=== PATIENT | female | born 1940 | race Caucasian/White ===

== ENCOUNTER 2020-05-31 08:50 | Day surgery (SDC) | payer MEDICARE, BC ==
[2020-05-31] MEDS ORDERED: Cataract Ophth Solution EYERT ONE (09:00)
[2020-05-31] MEDS ORDERED: Ondansetron 4 MG/2 ML SDV IVPUSH PRN (09:00)
[2020-05-31] MEDS ORDERED: Moxifloxacin 0.5% Ophth Soln 3 ML Bottle EYERT ONE (09:00)
[2020-05-31] MEDS ORDERED: Povidone-Iodine 5% Sterile Ophth Soln 30 ML Bottle EYERT ONE ×2 (09:00→11:02)
[2020-05-31] MEDS ORDERED: Acetaminophen 325 MG Tab PO PRN (09:00)
[2020-05-31] MEDS ORDERED: Sodium Chloride 0.9% 10 ML Syringe FLUSH PRN (09:00)
[2020-05-31] MEDS ORDERED: Tropicamide 1% Ophth Soln 15 ML Bottle EYERT ONE (09:00)
[2020-05-31] MEDS ORDERED: Timolol Maleate 0.5% Ophth Soln 5 ML Bottle EYERT ONE (09:00)
[2020-05-31] MEDS ORDERED: Phenylephrine 10% Ophth Soln 5 ML Bot EYERT PRN (09:00)
[2020-05-31] MEDS ORDERED: Proparacaine 0.5% Ophth Soln 15 ML Bottle EYERT ONE (09:00)
[2020-05-31] MEDS ORDERED: Tetracaine HCl/PF 0.5% 4 ML Bottle EYERT ONE (11:02)
[2020-05-31] MEDS ORDERED: Lidocaine 1% 30 ML SDV ONE (11:02)
[2020-05-31] MEDS ORDERED: Apraclonidine 0.5% Ophth Soln 5 ML Bot EYERT ONE (11:02)
[2020-05-31] MEDS ORDERED: Diclofenac Sodium 0.1% Ophth Soln 5 ML Bottle EYERT ONE (11:02)
[2020-05-31] MEDS ORDERED: Vancomycin 500 MG SDV EYERT ONE (11:03)
[2020-05-31] MEDS ORDERED: Chondroitin Sulfate/Hyaluronate Sodium Ophth Inj 0.75 ML Syringe EYERT ONE (11:03)
[2020-05-31] MEDS ORDERED: Balanced Salt Solution Ophth Irrig 500 ML Bottle IOCULAR ONE (11:03)
[2020-05-31] MEDS ORDERED: Dexamethasone/Tobramycin 0.1-0.3% Ophth Oint 3.5 GM Tube EYERT ONE (11:03)
[2020-05-31] MEDS ORDERED: Dexamethasone 4 MG/ML SDV IOCULAR ONE (11:06)
[2020-05-31 14:32] VITALS: BP 139/62; PULSE 52
--- NOTE | 2020-06-01 07:50 | OR ---
DATE: 05/31/2020 PREOPERATIVE DIAGNOSIS: Visually significant mixed cataract, right eye. POSTOPERATIVE DIAGNOSIS: Visually significant mixed cataract, right eye. PROCEDURE: Extracapsular cataract extraction with intraocular lens implant, right eye. ANESTHESIA: Topical/local MAC. COMPLICATIONS: None. INDICATION: Ms. Richards was seen in the clinic. She is unhappy with her vision noticing a slow progressive change. She has difficulty with both distance and near vision. She has difficulty seeing street signs. Examination revealed mixed cataract. I explained options, offered cataract surgery, and I explained risks including, but not limited to infection, retinal detachment, loss of vision, need for additional surgery, and risks associated with anesthesia. We discussed implant options. She has requested a monofocal implant. She understands that she will likely require glasses for some activities following surgery. OPERATIVE DESCRIPTION: After informed consent was obtained and the risks, benefits, and alternatives were explained, the patient was brought to the operative suite and topical anesthesia was administered. The patient was then prepped and draped in the sterile fashion and attention was placed on the right eye. A sterile lid speculum was placed into the right eye to allow operative exposure. A full-thickness paracentesis was made in the temporal portion of the operative eye. Preservative-free lidocaine 0.1 mL was injected into the anterior chamber followed by viscoelastic. A full-thickness corneal incision was then made into the anterior chamber. A bent needle cystotome was used to create a small rosalee in the anterior capsule. The capsulorrhexis forceps was then used to create a 360-degree curvilinear capsulorrhexis. The nucleus was then removed using a phacoemulsification handpiece and the remaining cortical material was then removed with irrigation and aspiration handpiece. Following removal of the cortical material, the capsular bag was then inspected and noted to be free of any holes or tears. Viscoelastic was then injected into the capsular bag and the intraocular lens was inserted into the capsular bag. The viscoelastic material was then removed from both the anterior and posterior chambers and from behind the IOL. The lens and capsular bag were then reinspected. The IOL was well centered and the capsular bag intact. The wound and paracentesis sites were inspected and hydrated with balanced saline solution. Both were found to be self- sealing. The intraocular pressure was assessed digitally and found to be within normal range. A good red reflex was noted at the completion of the procedure. No complications occurred during the operation. At the completion of the procedure, Maxitrol, Voltaren, and Iopidine drops were placed into the operative eye. A sterile eye shield was placed over the operative eye and the patient was transported to the postoperative recovery area having tolerated the procedure well. Postoperative instructions were given along with a postoperative appointment. The patient was advised to call with any questions or concerns. [facility] /[id number]
== END 2020-05-31 12:18 | disposition home or self-care (01) ==
LOC: DL.SDS 08:50
PROVIDERS: ATTEND Ophthalmology
DX: E11.36 Type 2 diabetes mellitus with diabetic cataract (principal); H25.811 Combined forms of age-related cataract, right eye; E03.9 Hypothyroidism, unspecified; F41.9 Anxiety disorder, unspecified; E78.5 Hyperlipidemia, unspecified; I25.10 Atherosclerotic heart disease of native coronary artery without angina pectoris; K21.9 Gastro-esophageal reflux disease without esophagitis; G47.30 Sleep apnea, unspecified; E55.9 Vitamin D deficiency, unspecified; Z88.2 Allergy status to sulfonamides; Z79.4 Long term (current) use of insulin; Z79.899 Other long term (current) drug therapy; Z98.890 Other specified postprocedural states; Z90.49 Acquired absence of other specified parts of digestive tract; Z79.82 Long term (current) use of aspirin
CPT/HCPCS: 00142; A9270-GY; J1100; J2001; J3370; V2632

== ENCOUNTER 2020-06-07 08:16 | Day surgery (SDC) | payer MEDICARE, BC ==
[2020-06-07] MEDS ORDERED: Sodium Chloride 0.9% 10 ML Syringe IV ONE (08:17)
[2020-06-07] MEDS ORDERED: Dexamethasone 4 MG/ML SDV IV ONE (08:17)
[2020-06-07] MEDS ORDERED: Midazolam 1 MG/ML 2 ML SDV IV ONE (08:17)
[2020-06-07] MEDS ORDERED: Ondansetron 4 MG/2 ML SDV IVPUSH PRN (08:30)
[2020-06-07] MEDS ORDERED: Cataract Ophth Solution EYELF ONE (08:30)
[2020-06-07] MEDS ORDERED: Timolol Maleate 0.5% Ophth Soln 5 ML Bottle EYELF ONE (08:30)
[2020-06-07] MEDS ORDERED: Phenylephrine 10% Ophth Soln 5 ML Bot EYELF ONE (08:30)
[2020-06-07] MEDS ORDERED: Moxifloxacin 0.5% Ophth Soln 3 ML Bottle EYELF ONE (08:30)
[2020-06-07] MEDS ORDERED: Proparacaine 0.5% Ophth Soln 15 ML Bottle EYELF ONE (08:30)
[2020-06-07] MEDS ORDERED: Povidone-Iodine 5% Sterile Ophth Soln 30 ML Bottle EYELF ONE ×2 (08:30→09:24)
[2020-06-07] MEDS ORDERED: Tropicamide 1% Ophth Soln 15 ML Bottle EYELF ONE (08:30)
[2020-06-07] MEDS ORDERED: Sodium Chloride 0.9% 10 ML Syringe FLUSH PRN (08:30)
[2020-06-07] MEDS ORDERED: Phenylephrine 10% Ophth Soln 5 ML Bot EYELF PRN (08:30)
[2020-06-07] MEDS ORDERED: Acetaminophen 325 MG Tab PO PRN (08:30)
[2020-06-07] MEDS ORDERED: Tetracaine HCl/PF 0.5% 4 ML Bottle EYELF ONE (09:23)
[2020-06-07] MEDS ORDERED: Apraclonidine 0.5% Ophth Soln 5 ML Bot EYELF ONE (09:24)
[2020-06-07] MEDS ORDERED: Lidocaine 1% 30 ML SDV ONE (09:24)
[2020-06-07] MEDS ORDERED: Balanced Salt Solution Ophth Irrig 500 ML Bottle IOCULAR ONE (09:25)
[2020-06-07] MEDS ORDERED: Dexamethasone/Tobramycin 0.1-0.3% Ophth Oint 3.5 GM Tube EYELF ONE (09:25)
[2020-06-07] MEDS ORDERED: Diclofenac Sodium 0.1% Ophth Soln 5 ML Bottle EYELF ONE (09:25)
[2020-06-07] MEDS ORDERED: Vancomycin 500 MG SDV EYELF ONE (09:26)
[2020-06-07] MEDS ORDERED: Chondroitin Sulfate/Hyaluronate Sodium Ophth Inj 0.75 ML Syringe EYELF ONE (09:26)
[2020-06-07] MEDS ORDERED: Dexamethasone 4 MG/ML SDV ONE (09:29)
[2020-06-07 10:24] VITALS: BP 133/57; PULSE 50
--- NOTE | 2020-06-12 07:02 | OR ---
DATE: 06/07/2020 PREOPERATIVE DIAGNOSIS: Visually significant mixed cataract, left eye. POSTOPERATIVE DIAGNOSIS: Visually significant mixed cataract, left eye. PROCEDURE: Extracapsular cataract extraction with intraocular lens implant, left eye. ANESTHESIA: Topical/local MAC. COMPLICATIONS: None. INDICATION: Ms. Richards was seen and evaluated in the clinic. Her examination revealed visually significant mixed cataract. She is unhappy with her vision noticing a progressive change, difficulty with both near and distance. I explained options, offered cataract surgery, and I explained risks, including, but not limited to, infection, retinal detachment, loss of vision, need for additional surgery, and risks associated with anesthesia. We discussed implant options. She has requested a monofocal implant. She understands that she will likely require glasses for best vision following surgery. OPERATIVE DESCRIPTION: After informed consent was obtained and the risks, benefits, and alternatives were explained, the patient was brought to the operative suite and topical anesthesia was administered. The patient was then prepped and draped in the sterile fashion and attention was placed on the left eye. A sterile lid speculum was placed into the left eye to allow operative exposure. A full-thickness paracentesis was made in the temporal portion of the operative eye. Preservative-free lidocaine 0.1 mL was injected into the anterior chamber followed by viscoelastic. A full-thickness corneal incision was then made into the anterior chamber. A bent needle cystotome was used to create a small rosalee in the anterior capsule. The capsulorrhexis forceps was then used to create a 360-degree curvilinear capsulorrhexis. The nucleus was then removed using a phacoemulsification handpiece and the remaining cortical material was then removed with irrigation and aspiration handpiece. Following removal of the cortical material, the capsular bag was then inspected and noted to be free of any holes or tears. Viscoelastic was then injected into the capsular bag and the intraocular lens was inserted into the capsular bag. The viscoelastic material was then removed from both the anterior and posterior chambers and from behind the IOL. The lens and capsular bag were then reinspected. The IOL was well centered and the capsular bag intact. The wound and paracentesis sites were inspected and hydrated with balanced saline solution. Both were found to be self- sealing. The intraocular pressure was assessed digitally and found to be within normal range. A good red reflex was noted at the completion of the procedure. No complications occurred during the operation. At the completion of the procedure, Maxitrol, Voltaren, and Iopidine drops were placed into the operative eye. A sterile eye shield was placed over the operative eye and the patient was transported to the postoperative recovery area having tolerated the procedure well. Postoperative instructions were given along with a postoperative appointment. The patient was advised to call with any questions or concerns. [facility] /[id number]
== END 2020-06-07 10:38 | disposition home or self-care (01) ==
LOC: DL.SDS 08:16
PROVIDERS: ATTEND Ophthalmology
DX: E11.36 Type 2 diabetes mellitus with diabetic cataract (principal); H25.812 Combined forms of age-related cataract, left eye; E03.9 Hypothyroidism, unspecified; E55.9 Vitamin D deficiency, unspecified; F41.9 Anxiety disorder, unspecified; Z88.2 Allergy status to sulfonamides; Z79.899 Other long term (current) drug therapy
CPT/HCPCS: A9270-GY; J1100; J2001; J2250; J3370; V2632

== ENCOUNTER 2020-11-11 19:50 | Emergency (ER) | payer MEDICARE, BC ==
[2020-11-11] MEDS ORDERED: Acetaminophen/HYDROcodone 325-5 MG Tab PO ONE (19:51)
[2020-11-11] MEDS ORDERED: Iopamidol 612 MG/ML 100 ML Bottle IVPUSH ONE (20:29)
--- NOTE | 2020-11-11 20:29 | EDM.PDOC ---
"ED HPI GENERAL MEDICAL PROBLEM - General Chief Complaint: Head Injury Stated Complaint: AMBULANCE Time Seen by Provider: 11/11/20 20:05 Source of Information: Reports: Patient History Limitations: Reports: No Limitations - History of Present Illness INITIAL COMMENTS - FREE TEXT/NARRATIVE: This 80 yo female patient was brought to the ED by [facility] due to a fall at [employer]. The patient reports she was attempting to get onto a stool when her foot slipped and she ended up falling directly to the floor. The patient reports she did hit the back of her head during the incident. The patient reports she dose have pain throughout her back and ribs. The patient reports a history of spinal fusion for her C-spine, T-spine and L-spine. Onset: Today Duration: Minutes:, Constant Location: Reports: Head, Neck, Chest, Back Quality: Reports: Ache Severity: Moderate Improves with: Reports: None Worsens with: Reports: None - Related Data Allergies Allergy/AdvReac Type Severity Reaction Status Date / Time Sulfa (Sulfonamide Allergy Rash Verified 11/11/20 20:50 Antibiotics) Home Meds: Home Meds Simvastatin [Zocor] 20 mg PO DAILY 01/18/16 [History] Aspirin [Halfprin] 81 mg PO DAILY 06/03/16 [History] Furosemide [Lasix] 40 mg PO DAILY 07/31/16 [History] Potassium Chloride [Klor-Con M20] 10 meq PO DAILY 07/31/16 [History] Magnesium 500 mg PO DAILY 08/15/16 [History] Nitroglycerin [Nitrostat] 0.4 mg SL Q5M PRN 08/15/16 [History] Apixaban [Eliquis] 5 mg PO BID #60 tablet 08/20/16 [Rx] Acetaminophen 1,000 mg PO Q4H PRN 05/30/20 [History] Biotin 5 mg PO DAILY 05/30/20 [History] Ezetimibe 10 mg PO DAILY 05/30/20 [History] Folic Acid 0.4 mg PO DAILY 05/30/20 [History] Insulin Detemir [Levemir Flextouch] 20 units INJECT BID 05/30/20 [History] Isosorbide Mononitrate [Imdur] 60 mg PO DAILY 05/30/20 [History] Ketorolac [Acular 0.5% Ophth Soln] 1 drop EYERT ASDIRECTED 05/30/20 [History] Levothyroxine [Synthroid] 100 mcg PO DAILY 05/30/20 [History] Melatonin 3 mg PO DAILY 05/30/20 [History] Metoprolol Succinate 12.5 mg PO DAILY 05/30/20 [History] Prednisolone Acetate/Pf [Prednisolone Acet 1% Eye Drop] 1 drop EYERT ASDIRECTED 05/30/20 [History] Triamcinolone Acetonide 1 squirt TOP ASDIRECTED 05/30/20 [History] Vitamin D3/Folic Acid [Dermacinrx Folixapure Tablet] 1 tab PO DAILY 05/30/20 [History] Amoxicillin 500 mg PO TID 05/31/20 [History] Melatonin 10 mg PO DAILY 05/31/20 [History] Ofloxacin [Ocuflox 0.3% Ophth Soln] 1 drop EYERT QID 05/31/20 [History] Ubidecarenone [Coq-10] 100 mg PO DAILY 05/31/20 [History] allopurinoL [Zyloprim] 100 mg PO DAILY 05/31/20 [History] Past Medical History HEENT History: Reports: Cataract, Impaired Vision Cardiovascular History: Reports: Afib, Bypass, Heart Failure, High Cholesterol, Hypertension, Stents Other Cardiovascular History: previous PTCA stent in 2010. 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: Musculoskeletal History: Reports: Arthritis, Back Pain, Chronic, Gout Neurological History: Reports: None Psychiatric History: Reports: Depression Endocrine/Metabolic History: Reports: Diabetes, Type II, Hypothyroidism Other Endocrine/Metabolic History: says her blood sugars are OK right now Hematologic History: Reports: None Immunologic History: Reports: None Oncologic (Cancer) History: Reports: Other (See Below) Other Oncologic History: skin ca on nose Dermatologic History: Reports: None - Infectious Disease History Infectious Disease History: Reports: Chicken Pox, Measles, Mumps - Past Surgical History HEENT Surgical History: Reports: Cataract Surgery, Naso-Sinus Surgery Cardiovascular Surgical History: Reports: Coronary Artery Stent Respiratory Surgical History: Reports: Thoracentesis GI Surgical History: Reports: Cholecystectomy, Colonoscopy, EGD Female Surgical History: Reports: Breast Reduction, Hysterectomy Endocrine Surgical History: Reports: None Neurological Surgical History: Reports: C-Spine Other Neurological Surgeries/Procedures: 4 back surg and 1 neck surg Musculoskeletal Surgical History: Reports: Shoulder Surgery Oncologic Surgical History: Reports: Biopsy of Breast Social & Family History - Family History Family Medical History: No Pertinent Family History - Caffeine Use Caffeine Use: Reports: Coffee Caffeine Use Comment: occasional ED ROS GENERAL - Review of Systems Review Of Systems: Comprehensive ROS is negative, except as noted in HPI. ED EXAM, HEAD INJURY - Physical Exam Exam: See Below Exam Limited By: No Limitations General Appearance: Alert, WD/WN, Moderate Distress Head: Scalp Hematoma, Scalp Tenderness Nexus Criteria: Posterior, Midline Cervical Tenderness. No: Evidence of Intoxication, Altered Level of Consciousness, Focal Neurological Deficit, Painful Distraction Injuries Eyes: Bilateral Eye: EOMI, Normal Inspection, PERRL Ears: Normal External Exam, Normal Canal, Hearing Grossly Normal, Normal TMs Nose: Normal Inspection, Normal Mucousa, No Blood Throat/Mouth: Normal Inspection, Normal Lips, Normal Teeth, Normal Gums, Normal Oropharynx, Normal Voice, No Airway Compromise Neck: Non-Tender, Full Range of Motion, Normal Alignment, Normal Inspection Respiratory: No Respiratory Distress, Lungs Clear, Normal Breath Sounds, No Accessory Muscle Use, Other (chest wall tenderness) Cardiovascular: Normal Peripheral Pulses, Regular Rate, Rhythm, No Edema, No Gallop, No JVD, No Murmur, No Rub GI/Abdominal Exam: Normal Bowel Sounds, Soft, Non-Tender, No Organomegaly, No Distention, No Abnormal Bruit, No Mass (Female) Exam: Deferred Rectal (Female) Exam: Deferred Back Exam: Paraspinal Tenderness (diffuse), Vertebral Tenderness Extremities: Normal Inspection, Normal Range of Motion, Non-Tender, No Pedal Edema, Normal Capillary Refill 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 As Tested, No Motor/Sensory Deficits, Alert, Normal Mood/Affect, Oriented x 3 Skin: Normal Color, Warm/Dry - Matilde Coma Score Best Eye Response (Matilde): (4) Open Spontaneously Best Verbal Response (Matilde): (5) Oriented Best Motor Response (Matilde): (6) Obeys Commands [place] Total: 15 Course - Orders/Labs/Meds Orders: Active Orders 24 hr Category Date Time Status Cervical Spine wo Cont [CT] Urgent Exams 11/11/20 20:13 Ordered Chest Abdomen Pelvis w Cont [CT] Urgent Exams 11/11/20 20:13 Ordered Head wo Cont [CT] Urgent Exams 11/11/20 20:13 Ordered Lumbar Spine wo Cont [CT] Urgent Exams 11/11/20 20:13 Ordered Thoracic Spine wo Cont [CT] Urgent Exams 11/11/20 20:13 Ordered CBC WITH AUTO DIFF [HEME] Stat Lab 11/11/20 20:10 Ordered COMPREHENSIVE METABOLIC PN,CMP [CHEM] Stat Lab 11/11/20 20:10 Ordered - Radiology Interpretation Free Text/Narrative:: [facility] Final Radiology Report Call: [phone] assistance Online chat: [email or web address] Name: VEGA THOMAS Age: 80Years F Date: 11/11/2020 SSN: -- : 1940 Study: CT HEAD WO CONT Requesting Physician: Tl Townsend Images: [id number] Addl Studies: Provided Clinical History: Fall Contrast: Without Contrast Medium: Contrast Amount: Contrast Method: Page 1 of 2 PROCEDURE INFORMATION: Exam: CT Head Without Contrast Exam date and time: 11/11/2020 8:35 PM Age: 80 years old Clinical indication: Other: Fall TECHNIQUE: Imaging protocol: Computed tomography of the head without contrast. Radiation optimization: All CT scans at this facility use at least one of these dose optimization techniques: automated exposure control; mA and/or kV adjustment per patient size (includes targeted exams where dose is matched to clinical indication); or iterative reconstruction. COMPARISON: No relevant prior studies available. FINDINGS: Brain: There is mild diffuse cerebral atrophy present, consistent with this jet ent's age. There is patchy low attenuation in the white matter of both cerebral hemispheres which is a nonspecific finding but most likely secondary to mild chronic microvascular ischemic disease. No evidence of acute ischemia. No hemorrhage. Cerebral ventricles: No ventriculomegaly. Bones/joints: Unremarkable. No acute fracture. Paranasal sinuses: Visualized sinuses are unremarkable. No fluid levels. Mastoid air cells: Visualized mastoid air cells are well aerated. Orbital cavity: The appearance of the globes is suggestive of prior cataract surgery. Vasculature: Calcified atherosclerosis of the intracranial ICAs. Soft tissues: Soft tissue contusion of the midline to left posterior head. IMPRESSION: 1. Soft tissue contusion of the midline to left posterior head impression. No acute intracranial abnormality. VEGA THOMAS | Final Radiology Report CONFIDENTIALITY STATEMENT This report is intended only for use by the referring physician, and only in accordance with law. If you received this in error, call [phone]. Page 2 of 2 2. Non-acute findings are described above. Thank you for allowing us to participate in the care of your patient. Dictated and Authenticated by: Vaibhav Cline MD 11/11/2020 10:12 PM Central Time ([place] & [place]) [facility] Final Radiology Report Call: [phone] assistance Online chat: [email or web address] Name: VEGA THOMAS Age: 80Years F Date: 11/11/2020 SSN: -- : 1940 Study: CT CERVICAL SPINE WO CONT Requesting Physician: Tl Townsend Images: [id number] Addl Studies: Provided Clinical History: Fall Contrast: Without Contrast Medium: Contrast Amount: Contrast Method: Page 1 of 2 PROCEDURE INFORMATION: Exam: CT Cervical Spine Without Contrast Exam date and time: 11/11/2020 8:35 PM Age: 80 years old Clinical indication: Other: Fall TECHNIQUE: Imaging protocol: Computed tomography images of the cervical spine without contrast. Radiation optimization: All CT scans at this facility use at least one of these dose optimization techniques: automated exposure control; mA and/or kV adjustment per patient size (includes targeted exams where dose is matched to clinical indication); or iterative recon struction. COMPARISON: No relevant prior studies available. FINDINGS: Bones/joints: No acute fractures. Status post ACDF at the levels of C4-C7. Normal alignment. 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 Small posterior disc bulge causes mild central canal narrowing at C3-C4. Lungs: Lung apices are normal. Soft tissues: Unremarkable. IMPRESSION: 1. No acute findings. 2. Non-acute findings are described above. Thank you for allowing us to participate in the care of your patient. Dictated and Authenticated by: Vaibhav Cline MD VEGA THOMAS | Final Radiology Report CONFIDENTIALITY STATEMENT This report is intended only for use by the referring physician, and only in accordance with law. If you received this in error, call [phone]. Page 2 of 2 11/11/2020 10:17 PM Central Time ([place] & [place]) [facility] Final Radiology Report Call: [phone] assistance Online chat: [email or web address] Name: VEGA THOMAS Age: 80Years F Date: 11/11/2020 SSN: -- : 1940 Study: CT THORACIC SPINE WO CONT Requesting Physician: Tl Townsend Images: [id number] Addl Studies: Provided Clinical History: Fall Contrast: Without Contrast Medium: Contrast Amount: Contrast Method: Page 1 of 2 PROCEDURE INFORMATION: Exam: CT Thoracic Spine Without Contrast Exam date and time: 11/11/2020 8:35 PM Age: 80 years old Clinical indication: Other: Fall; Prior surgery; Surgery type: Fusion TECHNIQUE: Imaging protocol: Computed tomography images of the thoracic spine without contrast. Radiation optimization: All CT scans at this facility use at least one of these dose optimization techniques: automated exposure control; mA and/or kV adjustment per patient size (includes targeted exams where dose is matched to clinical indication); or iterative re construction. COMPARISON: No relevant prior studies available. FINDINGS: Vertebrae: Postoperative changes of lower thoracic to lumbar spine fusion. The visualized hardware appears well positioned and intact. No acute fracture. Normal alignment. Discs/Spinal canal/Neural foramina: No significant disc protrusion. No severe spinal canal stenosis. No significant neural foraminal narrowing. Soft tissues: Unremarkable. IMPRESSION: No acute thoracic spine abnormality. Thank you for allowing us to participate in the care of your patient. VEGA THOMAS | Final Radiology Report CONFIDENTIALITY STATEMENT This report is intended only for use by the referring physician, and only in accordance with law. If you received this in error, call [phone]. Page 2 of 2 Dictated and Authenticated by: Paulina Green MD 11/11/2020 10:13 PM Central Time ([place] & [place]) [facility] Final Radiology Report Call: [phone] assistance Online chat: [email or web address] Name: VEGA THOMAS Age: 80Years F Date: 11/11/2020 SSN: -- : 1940 Study: CT LUMBAR SPINE WO CONT Requesting Physician: Tl Townsend Images: [id number] Addl Studies: Provided Clinical History: Fall Contrast: Without Contrast Medium: Contrast Amount: Contrast Method: CONFIDENTIALITY STATEMENT This report is intended only for use by the referring physician, and only in accordance with law. If you received this in error, call [phone]. Page 1 of 1 PROCEDURE INFORMATION: Exam: CT Lumbar Spine Without Contrast Exam date and time: 11/11/2020 8:35 PM Age: 80 years old Clinical indication: Other: Fall; Prior surgery; Surgery type: Fusion TECHNIQUE: Imaging protocol: Computed tomography images of the lumbar spine without contrast. Radiation optimization: All CT scans at this facility use at least one of these dose optimization techniques: automated exposure control; mA and/or kV adjustment per patient size (includes targeted exams where dose is matched to clinical indication); or iterative reconstruction. COMPARISON: No relevant prior studies available. FINDINGS: Vertebrae: Postoperative changes of thoracolumbar fusion and posterior decompression. Discs/Spinal canal/Neural foramina: No significant disc protrusion. No severe spinal canal stenosis. No significant neural foraminal narrowing. Other bones/joints: Hardware appears well positioned and intact. Soft tissues: Unremarkable. IMPRESSION: No acute lumbar spine abnormality. Thank you for allowing us to participate in the care of your patient. Dictated and Authenticated by: Paulina Green MD 11/11/2020 10:15 PM Central Time ([place] & [place]) [facility] Final Radiology Report Call: [phone] assistance Online chat: [email or web address] Name: VEGA THOMAS Age: 80Years F Date: 11/11/2020 SSN: -- : 1940 Study: CT CHEST ABDOMEN PELVIS W CONT Requesting Physician: Tl Townsend Images: [id number] Addl Studies: [id number] - CT CHEST W (1) Provided Clinical History: Fall Contrast: With Contrast Medium: [id number] Contrast Amount: 100 mL Contrast Method: Intravenous (IV) Page 1 of 2 PROCEDURE INFORMATION: Exam: CT Chest With Contrast; Diagnostic Exam date and time: 11/11/2020 8:35 PM Age: 80 years old Clinical indication: Other: Pain; Additional info: Fall TECHNIQUE: Imaging protocol: Diagnostic computed tomography of the chest with contrast. Radiation optimization: All CT scans at this facility use at least one of these dose optimization techniques: automated exposure control; mA and/or kV adjustment per patient size (includes targeted exams where dose is matched to clinical indication); or iterative reconstruction. Contrast material: [id number]; Contrast volume: 100 ml; Contrast route: INTRAVENOUS (IV); COMPARISON: No relevant prior studies available. FINDINGS: Lungs: Left lung base pleuroparenchymal scarring. Pleural spaces: Unremarkable. No pneumothorax. No pleural effusion. Heart: Cardiomegaly. Aorta: Unremarkable. No aortic aneurysm. Lymph nodes: Unremarkable. No enlarged lymph nodes. Bones/joints: Unremarkable. No acute fracture. Soft tissues: Unremarkable. IMPRESSION: No acute abnormality. VEGA THOMAS | Final Radiology Report CONFIDENTIALITY STATEMENT This report is intended only for use by the referring physician, and only in accordance with law. If you received this in error, call [phone]. Page 2 of 2 PROCEDURE INFORMATION: Exam: CT Abdomen And Pelvis With Contrast Exam date and time: 11/11/2020 8:35 PM Age: 80 years old Clinical indication: Other: Pain; Additional info: Fall TECHNIQUE: Imaging protocol: Computed tomography of the abdomen and pelvis with contrast. Radiation optimization: All CT scans at this facility use at least one of these dose optimization techniques: automated exposure control; mA and/or kV adjustment per patient size (includes targeted exams where dose is matched to clinical indication); or iterative reconstruction. Contrast material: [id number]; Contrast volume: 100 ml; Contrast route: INTRAVENOUS (IV); COMPARISON: No relevant prior studies available. FINDINGS: Liver: Normal. No mass. Gallbladder and bile ducts: The patient is status post cholecystectomy. Pancreas: Normal. No ductal dilation. Spleen: Normal. No splenomegaly. Adrenal glands: Normal. No mass. Kidneys and ureters: Normal. No hydronephrosis. Stomach and bowel: Unremarkable. No obstruction. No mucosal thickening. Appendix: No evidence of appendicitis. Intraperitoneal space: Unremarkable. No free air. No significant fluid collection. Vasculature: Unremarkable. No abdominal aortic aneurysm. Lymph nodes: Unremarkable. No enlarged lymph nodes. Urinary bladder: Unremarkable as visualized. Reproductive: The patient is status post hysterectomy. Bones/joints: Unremarkable. No acute fracture. Soft tissues: Unremarkable. IMPRESSION: No solid organ injury. Thank you for allowing us to participate in the care of your patient. Dictated and Authenticated by: Paulina Green MD 11/11/2020 10:18 PM Central Time ([place] & [place]) Departure - Departure Time of Disposition: 22:27 Disposition: Home, Self-Care 01 Condition: Fair Clinical Impression: Fall from ground level Head contusion Qualifiers: Encounter type: initial encounter Contusion of head detail: scalp Qualified Code(s): S00.03XA - Contusion of scalp, initial encounter - Discharge Information *PRESCRIPTION DRUG MONITORING PROGRAM REVIEWED*: Not Applicable *COPY OF PRESCRIPTION DRUG MONITORING REPORT IN PATIENT TREVIN: Not Applicable Instructions: Facial or Scalp Contusion, [id number] Care Plan Goals: The patient was advised of the examination, lab and CT results during the visit. The patient was given an oral dose of [place] (10/325) while in the ED. The patient was discharged with [place] (5/325) #2 to take 1 by mouth every 6 hours as needed for pain and a script for [place] (5/325) #8 to take 1 by mouth every 6 hours as needed for pain. If the patient has any additional symptoms or concerns, the patient should either return to the emergency department or visit her primary care facility. - My Orders Last 24 Hours: My Active Orders 11/11/20 20:10 CBC WITH AUTO DIFF [HEME] Stat COMPREHENSIVE METABOLIC PN,CMP [CHEM] Stat 11/11/20 20:13 Cervical Spine wo Cont [CT] Urgent Chest Abdomen Pelvis w Cont [CT] Urgent Head wo Cont [CT] Urgent Lumbar Spine wo Cont [CT] Urgent Thoracic Spine wo Cont [CT] Urgent - Assessment/Plan Last 24 Hours: My Active Orders 11/11/20 20:10 CBC WITH AUTO DIFF [HEME] Stat COMPREHENSIVE METABOLIC PN,CMP [CHEM] Stat 11/11/20 20:13 Cervical Spine wo Cont [CT] Urgent Chest Abdomen Pelvis w Cont [CT] Urgent Head wo Cont [CT] Urgent Lumbar Spine wo Cont [CT] Urgent Thoracic Spine wo Cont [CT] Urgent"
[2020-11-11 20:42] VITALS: BP 171/72; PULSE 63
[2020-11-11 21:22] LABS: ANION GAP 15.2 mEq/L (7-13)
--- NOTE | 2020-11-11 22:12 | CT ---
PROCEDURE INFORMATION: Exam: CT Head Without Contrast Exam date and time: 11/11/2020 8:35 PM Age: 80 years old Clinical indication: Other: Fall TECHNIQUE: Imaging protocol: Computed tomography of the head without contrast. Radiation optimization: All CT scans at this facility use at least one of these dose optimization techniques: automated exposure control; mA and/or kV adjustment per patient size (includes targeted exams where dose is matched to clinical indication); or iterative reconstruction. COMPARISON: No relevant prior studies available. FINDINGS: Brain: There is mild diffuse cerebral atrophy present, consistent with this patient's age. There is patchy low attenuation in the white matter of both cerebral hemispheres which is a nonspecific finding but most likely secondary to mild chronic microvascular ischemic disease. No evidence of acute ischemia. No hemorrhage. Cerebral ventricles: No ventriculomegaly. Bones/joints: Unremarkable. No acute fracture. Paranasal sinuses: Visualized sinuses are unremarkable. No fluid levels. Mastoid air cells: Visualized mastoid air cells are well aerated. Orbital cavity: The appearance of the globes is suggestive of prior cataract surgery. Vasculature: Calcified atherosclerosis of the intracranial ICAs. Soft tissues: Soft tissue contusion of the midline to left posterior head. IMPRESSION: 1. Soft tissue contusion of the midline to left posterior head impression. No acute intracranial abnormality. 2. Non-acute findings are described above.
--- NOTE | 2020-11-11 22:13 | CT ---
PROCEDURE INFORMATION: Exam: CT Thoracic Spine Without Contrast Exam date and time: 11/11/2020 8:35 PM Age: 80 years old Clinical indication: Other: Fall; Prior surgery; Surgery type: Fusion TECHNIQUE: Imaging protocol: Computed tomography images of the thoracic spine without contrast. Radiation optimization: All CT scans at this facility use at least one of these dose optimization techniques: automated exposure control; mA and/or kV adjustment per patient size (includes targeted exams where dose is matched to clinical indication); or iterative reconstruction. COMPARISON: No relevant prior studies available. FINDINGS: Vertebrae: Postoperative changes of lower thoracic to lumbar spine fusion. The visualized hardware appears well positioned and intact. No acute fracture. Normal alignment. Discs/Spinal canal/Neural foramina: No significant disc protrusion. No severe spinal canal stenosis. No significant neural foraminal narrowing. Soft tissues: Unremarkable. IMPRESSION: No acute thoracic spine abnormality.
--- NOTE | 2020-11-11 22:15 | CT ---
PROCEDURE INFORMATION: Exam: CT Lumbar Spine Without Contrast Exam date and time: 11/11/2020 8:35 PM Age: 80 years old Clinical indication: Other: Fall; Prior surgery; Surgery type: Fusion TECHNIQUE: Imaging protocol: Computed tomography images of the lumbar spine without contrast. Radiation optimization: All CT scans at this facility use at least one of these dose optimization techniques: automated exposure control; mA and/or kV adjustment per patient size (includes targeted exams where dose is matched to clinical indication); or iterative reconstruction. COMPARISON: No relevant prior studies available. FINDINGS: Vertebrae: Postoperative changes of thoracolumbar fusion and posterior decompression. Discs/Spinal canal/Neural foramina: No significant disc protrusion. No severe spinal canal stenosis. No significant neural foraminal narrowing. Other bones/joints: Hardware appears well positioned and intact. Soft tissues: Unremarkable. IMPRESSION: No acute lumbar spine abnormality.
--- NOTE | 2020-11-11 22:18 | CT ---
PROCEDURE INFORMATION: Exam: CT Cervical Spine Without Contrast Exam date and time: 11/11/2020 8:35 PM Age: 80 years old Clinical indication: Other: Fall TECHNIQUE: Imaging protocol: Computed tomography images of the cervical spine without contrast. Radiation optimization: All CT scans at this facility use at least one of these dose optimization techniques: automated exposure control; mA and/or kV adjustment per patient size (includes targeted exams where dose is matched to clinical indication); or iterative reconstruction. COMPARISON: No relevant prior studies available. FINDINGS: Bones/joints: No acute fractures. Status post ACDF at the levels of C4-C7. Normal alignment. 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 Small posterior disc bulge causes mild central canal narrowing at C3-C4. Lungs: Lung apices are normal. Soft tissues: Unremarkable. IMPRESSION: 1. No acute findings. 2. Non-acute findings are described above.
--- NOTE | 2020-11-11 22:18 | CT ---
PROCEDURE INFORMATION: Exam: CT Chest With Contrast; Diagnostic Exam date and time: 11/11/2020 8:35 PM Age: 80 years old Clinical indication: Other: Pain; Additional info: Fall TECHNIQUE: Imaging protocol: Diagnostic computed tomography of the chest with contrast. Radiation optimization: All CT scans at this facility use at least one of these dose optimization techniques: automated exposure control; mA and/or kV adjustment per patient size (includes targeted exams where dose is matched to clinical indication); or iterative reconstruction. Contrast material: [id number]; Contrast volume: 100 ml; Contrast route: INTRAVENOUS (IV); COMPARISON: No relevant prior studies available. FINDINGS: Lungs: Left lung base pleuroparenchymal scarring. Pleural spaces: Unremarkable. No pneumothorax. No pleural effusion. Heart: Cardiomegaly. Aorta: Unremarkable. No aortic aneurysm. Lymph nodes: Unremarkable. No enlarged lymph nodes. Bones/joints: Unremarkable. No acute fracture. Soft tissues: Unremarkable. IMPRESSION: No acute abnormality. PROCEDURE INFORMATION: Exam: CT Abdomen And Pelvis With Contrast Exam date and time: 11/11/2020 8:35 PM Age: 80 years old Clinical indication: Other: Pain; Additional info: Fall TECHNIQUE: Imaging protocol: Computed tomography of the abdomen and pelvis with contrast. Radiation optimization: All CT scans at this facility use at least one of these dose optimization techniques: automated exposure control; mA and/or kV adjustment per patient size (includes targeted exams where dose is matched to clinical indication); or iterative reconstruction. Contrast material: [id number]; Contrast volume: 100 ml; Contrast route: INTRAVENOUS (IV); COMPARISON: No relevant prior studies available. FINDINGS: Liver: Normal. No mass. Gallbladder and bile ducts: The patient is status post cholecystectomy. Pancreas: Normal. No ductal dilation. Spleen: Normal. No splenomegaly. Adrenal glands: Normal. No mass. Kidneys and ureters: Normal. No hydronephrosis. Stomach and bowel: Unremarkable. No obstruction. No mucosal thickening. Appendix: No evidence of appendicitis. Intraperitoneal space: Unremarkable. No free air. No significant fluid collection. Vasculature: Unremarkable. No abdominal aortic aneurysm. Lymph nodes: Unremarkable. No enlarged lymph nodes. Urinary bladder: Unremarkable as visualized. Reproductive: The patient is status post hysterectomy. Bones/joints: Unremarkable. No acute fracture. Soft tissues: Unremarkable. IMPRESSION: No solid organ injury.
[2020-11-11] MEDS ORDERED: Acetaminophen/HYDROcodone 325-10 MG Tab PO ONE (22:22)
[2020-11-11] MEDS ORDERED: Acetaminophen/HYDROcodone 325-5 MG Tab ONE (22:39)
== END 2020-11-11 23:00 | disposition home or self-care (01) ==
LOC: DL.ED 19:50
DX: S00.03XA Contusion of scalp, initial encounter (principal); E11.9 Type 2 diabetes mellitus without complications; E03.9 Hypothyroidism, unspecified; M19.90 Unspecified osteoarthritis, unspecified site; I48.91 Unspecified atrial fibrillation; E78.00 Pure hypercholesterolemia, unspecified; I11.0 Hypertensive heart disease with heart failure; I50.9 Heart failure, unspecified; M10.9 Gout, unspecified; Z79.4 Long term (current) use of insulin; Z79.01 Long term (current) use of anticoagulants; Z95.5 Presence of coronary angioplasty implant and graft; Z79.899 Other long term (current) drug therapy; Z88.2 Allergy status to sulfonamides; W18.30XA Fall on same level, unspecified, initial encounter
CPT/HCPCS: 36415; 70450; 71260; 72125; 72128; 72131; 74177; 80053; 85025; 99284; 99285; A9270; Q9967

== ENCOUNTER 2023-02-20 17:15 | Inpatient (IN) | payer MEDICARE, BC ==
[2023-02-20] MEDS: Sodium Chloride 0.9% 10 ML Syringe FLUSH PRN (18:40)
[2023-02-20 19:06] LABS: BASOPHILS PERCENT AUTO 0.3 % (0.0-1.0); EOSINOPHILS PERCENT AUTO 0.4 % (1.0-3.0); HEMOGLOBIN 16.1 g/dL (12.0-16.0); LYMPHOCYTES PERCENT AUTO 10.4 % (20.5-50.1); MEAN CORPUSCULAR HEMOGLOBIN 31.2 pg (27.0-34.0); MEAN CORPUSCULAR HGB CONC 32.9 g/dL (33.0-35.0); MONOCYTES PERCENT AUTO 4.7 % (2-8); NEUTROPHILS PERCENT AUTO 84.2 % (42.2-75.2); PLATELET COUNT,PLT 136 10^3/uL (150-450); RED BLOOD CELL COUNT 5.16 10^6/uL (4.2-5.4)
[2023-02-20 19:30] LABS: B-TYPE NATRIURETIC PEPTIDE,BNP 91 pg/ml (0-100)
[2023-02-20 19:48] LABS: LACTIC ACID 1.5 mmol/L (0.4-2.0); PROTHROMBIN TIME 9.9 SEC (9.0-12.0); PTT,PARTIAL THROMBOPLSTIN TIME 23.7 SEC (22.0-34.0)
[2023-02-20 19:57] LABS: ALANINE AMINOTRANSFERASE,ALT 80 U/L (14-59); ALBUMIN 3.3 g/dL (3.4-5.0); ALKALINE PHOSPHATASE 101 U/L (46-116); ANION GAP 12.8 mEq/L (7-13); ASPARTATE AMNIOTRANSFERASE,AST 46 U/L (15-37); BILIRUBIN TOTAL 1.2 mg/dL (0.2-1.0); BLOOD UREA NITROGEN,BUN 33 mg/dL (7-18); BUN/CREATININE RATIO 23.7 (No establ ref range); CALCIUM 8.6 mg/dL (8.5-10.1); CARBON DIOXIDE,CO2 29 mmol/L (21-32); CHLORIDE,CL 103 mmol/L (98-107); CREATININE 1.39 mg/dL (0.55-1.02); EST CRCL DRUG DOSING (CG) 40.22 mL/min; GLUCOSE RANDOM 241 mg/dL (70-99); LACTATE DEHYDROGENASE,LDH 428 U/L (81-234); MAGNESIUM 2.1 mg/dL (1.8-2.4); POTASSIUM,K 4.8 mmol/L (3.5-5.1); PROTEIN TOTAL,TP 6.7 g/dL (6.4-8.2); SODIUM,NA 140 mmol/L (136-145)
[2023-02-20 19:58] LABS: A/G RATIO 0.97; C-REACTIVE PROTEIN < 0.2 mg/dL (0.0-0.9); ESTIMATED GFR 38 mL/min (>=60)
[2023-02-20] MEDS ORDERED: Ondansetron 4 MG/2 ML SDV IVPUSH ONE (21:35)
[2023-02-20] MEDS ORDERED: Acetaminophen/HYDROcodone 325-5 MG Tab PO PRN (23:01)
[2023-02-20] MEDS ORDERED: Acetaminophen 325 MG Tab PO PRN (23:01)
[2023-02-20] MEDS ORDERED: Albuterol/Ipratropium 3.0-0.5 MG/3 ML Neb Soln NEB PRN (23:01)
[2023-02-20] MEDS ORDERED: Morphine 2 MG/ML SYRINGE IVPUSH PRN (23:01)
[2023-02-20] MEDS ORDERED: Ondansetron 4 MG/2 ML SDV IVPUSH PRN (23:01)
[2023-02-20] MEDS ORDERED: hydrALAZINE 20 MG/ML SDV IVPUSH PRN (23:15)
[2023-02-20] MEDS ORDERED: LORazepam 2 MG/ML SDV IVPUSH PRN (23:16)
[2023-02-20] MEDS ORDERED: Melatonin 3 MG Tab PO PRN (23:17)
[2023-02-20] MEDS ORDERED: Glucagon,Human Recombinant 1 MG Vial IM PRN (23:18)
[2023-02-20] MEDS ORDERED: 50% Dextrose in Water 50 ML Syringe IVPUSH PRN (23:18)
[2023-02-21] MEDS: Losartan 50 MG Tab PO SCH ×2 (00:44→09:45)
[2023-02-21] MEDS: Insulin Glarg,Human.Rec.Analog 100 Unit/ML SUBCUT SCH ×3 (00:45→22:01)
[2023-02-21] MEDS: cefTRIAXone 2 GM Vial IVPUSH SCH ×2 (00:48→22:59)
[2023-02-21] MEDS: Metoprolol Succinate 25 MG Tab.ER PO SCH ×2 (02:01→09:45)
[2023-02-21] MEDS: Apixaban 5 MG Tab PO SCH ×3 (02:02→21:43)
[2023-02-21] MEDS ORDERED: Furosemide 20 MG/2 ML VIAL IVPUSH ONE (06:00)
[2023-02-21 06:23] LABS: BASOPHILS PERCENT AUTO 0.1 % (0.0-1.0); EOSINOPHILS PERCENT AUTO 0.1 % (1.0-3.0); HEMATOCRIT 43.6 % (37.0-47.0); HEMOGLOBIN 14.3 g/dL (12.0-16.0); LYMPHOCYTES PERCENT AUTO 8.9 % (20.5-50.1); MEAN CORPUSCULAR HEMOGLOBIN 31.2 pg (27.0-34.0); MEAN CORPUSCULAR HGB CONC 32.8 g/dL (33.0-35.0); MEAN CORPUSCULAR VOLUME 95.2 fL (80-100); MONOCYTES PERCENT AUTO 3.8 % (2-8); NEUTROPHILS PERCENT AUTO 87.1 % (42.2-75.2); PLATELET COUNT,PLT 126 10^3/uL (150-450); RED BLOOD CELL COUNT 4.58 10^6/uL (4.2-5.4); WHITE BLOOD CELL COUNT,WBC 17.9 10^3/uL (5.0-10.0)
[2023-02-21 06:44] LABS: ALBUMIN 2.8 g/dL (3.4-5.0); ANION GAP 11.6 mEq/L (7-13); BUN/CREATININE RATIO 22.6 (No establ ref range); CALCIUM 8.5 mg/dL (8.5-10.1); CREATININE 1.64 mg/dL (0.55-1.02); EST CRCL DRUG DOSING (CG) 24.76 mL/min; POTASSIUM,K 4.6 mmol/L (3.5-5.1); PROTEIN TOTAL,TP 5.8 g/dL (6.4-8.2)
[2023-02-21 06:45] LABS: A/G RATIO 0.93
[2023-02-21] MEDS ORDERED: Simvastatin 10 MG Tab PO SCH (09:00)
[2023-02-21] MEDS ORDERED: Levothyroxine 100 MCG Tab PO SCH (09:00)
[2023-02-21] MEDS ORDERED: Aspirin 81 MG Tab.EC PO SCH (09:00)
[2023-02-21] MEDS: Insulin Lispro 100 Units/ML 3 ML Vial SUBCUT SCH ×3 (09:47→17:44)
[2023-02-21] MEDS ORDERED: Midodrine 5 MG Tab PO PRN (12:32)
[2023-02-21] MEDS ORDERED: Clotrimazole 1% Crm 30 GM Tube TOP PRN (13:20)
[2023-02-21] MEDS: Clindamycin in 0.9 % Sod Chlor 900 MG in Premix Bag 1 BAG IV SCH ×4 (14:58→23:05)
[2023-02-21] MEDS: Albumin Human 25 GM in Premix Bag 1 BAG IV SCH ×2 (15:40→20:34)
[2023-02-21] MEDS ORDERED: Lactated Ringers 1,500 ML IV SCH (17:15)
[2023-02-21] MEDS: Melatonin 3 MG Tab PO SCH (21:42)
[2023-02-21] MEDS: Saccharomyces Boulardii (Probiotic) 250 MG Cap PO SCH (21:43)
[2023-02-21] MEDS: Mupirocin Oint 22 GM Tube TOP SCH (22:13)
[2023-02-22] MEDS: Albumin Human 25 GM in Premix Bag 1 BAG IV SCH ×2 (02:30→08:56)
[2023-02-22] MEDS: Sodium Chloride 0.9% 10 ML Syringe FLUSH PRN ×2 (05:43→06:16)
[2023-02-22] MEDS: Levothyroxine 100 MCG Tab PO SCH (05:43)
[2023-02-22] MEDS: Clindamycin in 0.9 % Sod Chlor 900 MG in Premix Bag 1 BAG IV SCH ×6 (05:44→21:38)
[2023-02-22] MEDS ORDERED: Furosemide 20 MG/2 ML VIAL IVPUSH ONE ×2 (06:00→13:00)
[2023-02-22 06:09] LABS: BASOPHILS PERCENT AUTO 0.2 % (0.0-1.0); EOSINOPHILS PERCENT AUTO 0.4 % (1.0-3.0); HEMATOCRIT 37.9 % (37.0-47.0); HEMOGLOBIN 12.3 g/dL (12.0-16.0); LYMPHOCYTES PERCENT AUTO 14.1 % (20.5-50.1); MEAN CORPUSCULAR HEMOGLOBIN 31.3 pg (27.0-34.0); MEAN CORPUSCULAR HGB CONC 32.5 g/dL (33.0-35.0); MEAN CORPUSCULAR VOLUME 96.4 fL (80-100); MONOCYTES PERCENT AUTO 5.7 % (2-8); NEUTROPHILS PERCENT AUTO 79.6 % (42.2-75.2); PLATELET COUNT,PLT 85 10^3/uL (150-450); RED BLOOD CELL COUNT 3.93 10^6/uL (4.2-5.4); WHITE BLOOD CELL COUNT,WBC 12.1 10^3/uL (5.0-10.0)
[2023-02-22 06:28] LABS: A/G RATIO 1.3; ALBUMIN 3.5 g/dL (3.4-5.0); ANION GAP 12.7 mEq/L (7-13); BILIRUBIN TOTAL 0.9 mg/dL (0.2-1.0); BUN/CREATININE RATIO 28.6 (No establ ref range); CALCIUM 8.6 mg/dL (8.5-10.1); CREATININE 1.4 mg/dL (0.55-1.02); POTASSIUM,K 4.7 mmol/L (3.5-5.1); PROTEIN TOTAL,TP 6.1 g/dL (6.4-8.2)
[2023-02-22 06:33] LABS: C-REACTIVE PROTEIN 17.1 mg/dL (0.0-0.9)
[2023-02-22] MEDS: Allopurinol 100 MG Tab PO SCH (09:07)
[2023-02-22] MEDS: Folic Acid 1 MG Tab PO SCH (09:07)
[2023-02-22] MEDS: Saccharomyces Boulardii (Probiotic) 250 MG Cap PO SCH ×2 (09:07→20:40)
[2023-02-22] MEDS: Apixaban 5 MG Tab PO SCH ×2 (09:07→20:40)
[2023-02-22] MEDS: Metoprolol Succinate 25 MG Tab.ER PO SCH (09:08)
[2023-02-22] MEDS ORDERED: Emollient Combination No.71 177 ML Bottle TOP PRN (09:12)
[2023-02-22] MEDS: Insulin Lispro 100 Units/ML 3 ML Vial SUBCUT SCH ×4 (09:15→18:18)
[2023-02-22] MEDS: Insulin Glarg,Human.Rec.Analog 100 Unit/ML SUBCUT SCH ×2 (10:04→20:42)
[2023-02-22] MEDS: Mupirocin Oint 22 GM Tube TOP SCH ×2 (10:05→20:42)
[2023-02-22] MEDS: Melatonin 3 MG Tab PO SCH (20:41)
[2023-02-22] MEDS ORDERED: Simvastatin 10 MG Tab PO SCH (21:00)
[2023-02-22] MEDS: cefTRIAXone 2 GM Vial IVPUSH SCH (21:36)
[2023-02-23] MEDS: Clindamycin in 0.9 % Sod Chlor 900 MG in Premix Bag 1 BAG IV SCH ×6 (05:31→21:59)
[2023-02-23] MEDS: Levothyroxine 100 MCG Tab PO SCH (05:33)
[2023-02-23 06:13] LABS: BASOPHILS PERCENT AUTO 0.2 % (0.0-1.0); EOSINOPHILS PERCENT AUTO 0.9 % (1.0-3.0); HEMATOCRIT 38.5 % (37.0-47.0); HEMOGLOBIN 12.6 g/dL (12.0-16.0); LYMPHOCYTES PERCENT AUTO 12.4 % (20.5-50.1); MEAN CORPUSCULAR HEMOGLOBIN 31.3 pg (27.0-34.0); MEAN CORPUSCULAR HGB CONC 32.7 g/dL (33.0-35.0); MEAN CORPUSCULAR VOLUME 95.5 fL (80-100); NEUTROPHILS PERCENT AUTO 81.5 % (42.2-75.2); PLATELET COUNT,PLT 96 10^3/uL (150-450); RED BLOOD CELL COUNT 4.03 10^6/uL (4.2-5.4); WHITE BLOOD CELL COUNT,WBC 13.4 10^3/uL (5.0-10.0)
[2023-02-23 06:30] LABS: A/G RATIO 1.2; ALBUMIN 3.4 g/dL (3.4-5.0); ANION GAP 11.4 mEq/L (7-13); CALCIUM 8.8 mg/dL (8.5-10.1); CREATININE 1.22 mg/dL (0.55-1.02); EST CRCL DRUG DOSING (CG) 33.28 mL/min; POTASSIUM,K 4.4 mmol/L (3.5-5.1); PROTEIN TOTAL,TP 6.2 g/dL (6.4-8.2)
[2023-02-23] MEDS: Insulin Lispro 100 Units/ML 3 ML Vial SUBCUT SCH ×3 (09:52→17:07)
[2023-02-23] MEDS: Saccharomyces Boulardii (Probiotic) 250 MG Cap PO SCH ×2 (09:56→20:47)
[2023-02-23] MEDS: Allopurinol 100 MG Tab PO SCH (09:56)
[2023-02-23] MEDS: Apixaban 5 MG Tab PO SCH ×2 (09:56→20:46)
[2023-02-23] MEDS: Spironolactone 25 MG Tab PO SCH (09:56)
[2023-02-23] MEDS: Folic Acid 1 MG Tab PO SCH (09:56)
[2023-02-23] MEDS: Metoprolol Succinate 25 MG Tab.ER PO SCH (09:57)
[2023-02-23] MEDS: Insulin Glarg,Human.Rec.Analog 100 Unit/ML SUBCUT SCH (10:03)
[2023-02-23] MEDS: Furosemide 20 MG/2 ML VIAL IVPUSH SCH (10:04)
[2023-02-23] MEDS: Mupirocin Oint 22 GM Tube TOP SCH ×2 (10:04→20:47)
[2023-02-23] MEDS: Hydrochlorothiazide 25 MG Tab PO SCH (14:34)
[2023-02-23] MEDS: Melatonin 3 MG Tab PO SCH (20:46)
[2023-02-23] MEDS ORDERED: Insulin Glarg,Human.Rec.Analog 100 Unit/ML SUBCUT SCH (21:00)
[2023-02-23] MEDS ORDERED: Simvastatin 10 MG Tab PO SCH (21:00)
[2023-02-23] MEDS: cefTRIAXone 2 GM Vial IVPUSH SCH (21:53)
[2023-02-24] MEDS: Clindamycin in 0.9 % Sod Chlor 900 MG in Premix Bag 1 BAG IV SCH ×4 (05:51→14:31)
[2023-02-24] MEDS: Levothyroxine 100 MCG Tab PO SCH (05:52)
[2023-02-24 06:14] LABS: HEMOGLOBIN 13.5 g/dL (12.0-16.0); MEAN CORPUSCULAR HEMOGLOBIN 31.3 pg (27.0-34.0); MEAN CORPUSCULAR HGB CONC 32.9 g/dL (33.0-35.0); MEAN CORPUSCULAR VOLUME 95.1 fL (80-100); PLATELET COUNT,PLT 113 10^3/uL (150-450); RED BLOOD CELL COUNT 4.31 10^6/uL (4.2-5.4); WHITE BLOOD CELL COUNT,WBC 10.1 10^3/uL (5.0-10.0)
[2023-02-24 06:27] LABS: BASOPHILS PERCENT AUTO 0.3 % (0.0-1.0); EOSINOPHILS PERCENT AUTO 1.4 % (1.0-3.0); LYMPHOCYTES PERCENT AUTO 13.1 % (20.5-50.1); MONOCYTES PERCENT AUTO 6.7 % (2-8); NEUTROPHILS PERCENT AUTO 78.5 % (42.2-75.2)
[2023-02-24 06:32] LABS: A/G RATIO 1.03; ALBUMIN 3.3 g/dL (3.4-5.0); ANION GAP 9.5 mEq/L (7-13); BILIRUBIN TOTAL 0.9 mg/dL (0.2-1.0); CALCIUM 8.8 mg/dL (8.5-10.1); CREATININE 1.28 mg/dL (0.55-1.02); EST CRCL DRUG DOSING (CG) 31.72 mL/min; POTASSIUM,K 4.5 mmol/L (3.5-5.1); PROTEIN TOTAL,TP 6.5 g/dL (6.4-8.2)
[2023-02-24 06:47] LABS: BAND PERCENT MAN 2 %; EOSINOPHILS PERCENT MAN 1 % (1-3); LYMPHOCYTES PERCENT MAN 10 % (20-50); MONOCYTES PERCENT MAN 4 % (2-8); SEG NEUTROPHILS PERCENT MAN 83 % (42-75)
[2023-02-24] MEDS: Insulin Lispro 100 Units/ML 3 ML Vial SUBCUT SCH ×3 (09:11→17:14)
[2023-02-24] MEDS: Saccharomyces Boulardii (Probiotic) 250 MG Cap PO SCH (09:13)
[2023-02-24] MEDS: Metoprolol Succinate 25 MG Tab.ER PO SCH (09:13)
[2023-02-24] MEDS: Hydrochlorothiazide 25 MG Tab PO SCH (09:15)
[2023-02-24] MEDS: Apixaban 5 MG Tab PO SCH (09:15)
[2023-02-24] MEDS: Folic Acid 1 MG Tab PO SCH (09:15)
[2023-02-24] MEDS: Spironolactone 25 MG Tab PO SCH (09:16)
[2023-02-24] MEDS: Furosemide 20 MG/2 ML VIAL IVPUSH SCH (09:17)
[2023-02-24] MEDS: Allopurinol 100 MG Tab PO SCH (09:17)
[2023-02-24] MEDS: Sodium Chloride 0.9% 10 ML Syringe FLUSH PRN (09:19)
[2023-02-24] MEDS ORDERED: Furosemide 40 MG Tab PO ONE (09:21)
[2023-02-24] MEDS: Insulin Glarg,Human.Rec.Analog 100 Unit/ML SUBCUT SCH (09:23)
[2023-02-24] MEDS: Mupirocin Oint 22 GM Tube TOP SCH (09:23)
[2023-02-24 17:23] VITALS: BP 121/85; PULSE 63
== END 2023-02-24 18:30 | disposition home or self-care (01) | DRG 603 ==
LOC: DL.ED 17:15 → DL.MS 22:10 → DL.ED 22:30
PROVIDERS: ADMIT Internal Medicine; ATTEND Internal Medicine
DX: L03.115 Cellulitis of right lower limb (principal); I48.20 Chronic atrial fibrillation, unspecified; I13.0 Hypertensive heart and chronic kidney disease with heart failure and stage 1 through stage 4 chronic kidney disease, or unspecified chronic kidney disease; R78.81 Bacteremia; E11.65 Type 2 diabetes mellitus with hyperglycemia; D69.6 Thrombocytopenia, unspecified; E11.22 Type 2 diabetes mellitus with diabetic chronic kidney disease; N18.30 Chronic kidney disease, stage 3 unspecified; R74.01 Elevation of levels of liver transaminase levels; I11.0 Hypertensive heart disease with heart failure; I50.9 Heart failure, unspecified; E11.9 Type 2 diabetes mellitus without complications; I25.10 Atherosclerotic heart disease of native coronary artery without angina pectoris; M19.90 Unspecified osteoarthritis, unspecified site; E03.9 Hypothyroidism, unspecified; G89.29 Other chronic pain; M54.50 Low back pain, unspecified; I87.2 Venous insufficiency (chronic) (peripheral); I99.8 Other disorder of circulatory system; D72.829 Elevated white blood cell count, unspecified; E80.6 Other disorders of bilirubin metabolism; R74.02 Elevation of levels of lactic acid dehydrogenase [LDH]; E88.09 Other disorders of plasma-protein metabolism, not elsewhere classified; G47.33 Obstructive sleep apnea (adult) (pediatric); Z88.2 Allergy status to sulfonamides; Z95.5 Presence of coronary angioplasty implant and graft; E78.00 Pure hypercholesterolemia, unspecified; M10.9 Gout, unspecified; K21.9 Gastro-esophageal reflux disease without esophagitis; Z79.4 Long term (current) use of insulin; Z79.01 Long term (current) use of anticoagulants; Z90.710 Acquired absence of both cervix and uterus; Z90.49 Acquired absence of other specified parts of digestive tract; Z98.890 Other specified postprocedural states; Z98.49 Cataract extraction status, unspecified eye; Z79.82 Long term (current) use of aspirin; Z79.899 Other long term (current) drug therapy; Z95.1 Presence of aortocoronary bypass graft
CPT/HCPCS: 36415; 71045; 80053; 82947; 83605; 83615; 83735; 83880; 84145; 84484; 85025; 85379; 85610; 85651; 85730; 86140; 87040 ×2; 87077; 87186; 93005; 93971; J2405; J3370; J7040; 80202; 84550; 99223; 99232; 99238; A9270-GY; J0696; J1815-GY; J1940; J3490; J7120; P9047